=== PATIENT | female | born 1955 | race Caucasian/White ===

== ENCOUNTER 2022-07-31 09:55 | Outpatient (CLI) | payer BC | END 2022-07-31 09:56 | disposition home or self-care (01) | LOC: CSHMAMMO 09:55 | PROVIDERS: ATTEND Family Medicine | DX: Z13.820 Encounter for screening for osteoporosis (principal); Z78.0 Asymptomatic menopausal state; M85.89 Other specified disorders of bone density and structure, multiple sites | CPT/HCPCS: 77080 ==